=== PATIENT | male | born 1950 | race Caucasian/White ===

== ENCOUNTER 2016-04-16 17:21 | Emergency (ER) | payer MEDICAID ==
[2016-04-16] MEDS ORDERED: PROPARACAINE HCL OPTH 15ML BTL OPTH ONE (17:35)
--- NOTE | 2016-04-16 17:37 | Emergency Department Record ---
History of Present Illness - General Chief complaint: Eye Problem Stated complaint: SOMETHING IN LEFT EYE Time Seen by Provider: 04/16/16 17:35 Source: Patient Mode of Arrival: Ambulatory Limitations: No limitations Travel/Exposure to [place] Within 21 Days of Symptoms: No - History of Present Illness Initial comments: 65 yo male presents to ED with a CC of "possible" foreign body to the left eye. Patient reports that he was cutting metal with an electric saw this morning around 10:00, reports that he felt a piece of metal strike the left eye. Patient denies change in vision, but reports pain with blinking. Patient reports that his tetanus is not UTD. MD chief complaint: Eye pain, Foreign body Onset/Timin -: Hour(s) Location: Left eye If Injury: Occurred while hammering/grinding Eye Symptoms: Foreign body sensation, Pain Severity: Moderate If Pain, Quality: Sharp Consistency: Constant Context: Injury Associated Symptoms: None Treatments Prior to Arrival: None - Related Data Hx Tetanus Toxoid Vaccination: Yes Patient Tetanus UTD (within 5 yrs): Yes Home Medications Medication Instructions Recorded Confirmed Last Taken Aspirin 81 mg PO QD tab.chew 06/10/15 04/16/16 Atorvastatin Calcium 80 mg PO QD tab 06/10/15 04/16/16 Lisinopril 5 mg PO QD tab 06/10/15 04/16/16 Clopidogrel Bisulfate [Plavix] 75 mg PO QD tab 07/22/15 04/16/16 Metoprolol Succinate [Toprol Xl] 50 mg PO QD tab 01/01/16 04/16/16 Previous Rx's Medication Instructions Recorded Gentamicin Sulfate 1 drop LEFT EYE QID #5 ml 04/16/16 Allergies Allergy/AdvReac Type Severity Reaction Status Date / Time No Known Drug Allergies Allergy Verified 04/16/16 17:26 Travel Screening - Travel/Exposure Within Last 30 Days Have you traveled within the last 30 days?: No - Travel/Exposure Within Last Year Have you traveled outside the [place] in the last year?: No - Additonal Travel Details Have you been exposed to anyone with a communicable illness?: No Review of Systems Constitutional: Denies: Chills, Fever, Malaise, Night sweats Eyes: Reports: Eye pain, Photophobia. Denies: Eye discharge, Vision change ENT: Denies: Congestion, Ear pain, Epistaxis Respiratory: Denies: Cough, Dyspnea Cardiovascular: Denies: Chest pain, Dyspnea on exertion, Palpitations Endocrine: Denies: Fatigue, Heat or cold intolerance Gastrointestinal: Denies: Abdominal pain, Nausea, Vomiting Genitourinary: Denies: Incontinence, Retention Musculoskeletal: Denies: Arthralgia, Back pain, Gout, Joint swelling Skin: Denies: Bruising, Change in color, Rash Neurological: Denies: Abnormal gait, Confusion, Headache, Seizure Psychiatric: Denies: Anxiety Hematological/Lymphatic: Denies: Anemia, Blood Clots Past Medical History - SOCIAL HISTORY Smoking Status: Current every day smoker - RESPIRATORY Hx Respiratory Disorders: No - CARDIOVASCULAR Hx Cardio Disorders: Yes Hx Heart Attack: Yes - NEURO Hx Neuro Disorders: No - GI Hx GI Disorders: No - Hx Genitourinary Disorders: No - ENDOCRINE Hx Endocrine Disorders: No - MUSCULOSKELETAL Hx Musculoskeletal Disorders: No - PSYCH Hx Psych Problems: No - HEMATOLOGY/ONCOLOGY Hx Hematology/Oncology Disorders: No Family Medical History Any Significant Family History?: No Physical Exam - General General Appearance: Alert, Oriented x3, Cooperative, No acute distress Limitations: No limitations - Head Head exam: Atraumatic, Normocephalic, Normal inspection Head exam detail: negative: Abrasion, Contusion, Robbins's sign, General tenderness, Hematoma, Laceration - Eye Eye exam: Normal appearance, Other (Left eye was anesthetized with Alcaine drops , stained with florescein. Small linear abrasion to the cornea at the 3 o' clock position on examination, no FB identified, no rust ring present. Upper and lower lids were everted, no FB identified. ). negative: Conjunctival injection, Periorbital swelling, Periorbital tenderness, Scleral icterus - ENT Ear exam: negative: Auricular hematoma, Auricular trauma Nasal Exam: negative: Active bleeding, Discharge, Dried blood Mouth exam: negative: Drooling, Laceration, Muffled voice, Tongue elevation - Neck Neck exam: Normal inspection. negative: Meningismus, Tenderness - Respiratory Respiratory exam: Normal lung sounds bilaterally. negative: Rales, Respiratory distress, Rhonchi, Stridor - Cardiovascular Cardiovascular Exam: Regular rate, Normal rhythm, Normal heart sounds - GI/Abdominal GI/Abdominal exam: Soft. negative: Rebound, Rigid, Tenderness - Rectal Rectal exam: Deferred - exam: Deferred - Extremities Extremities exam: Normal inspection. negative: Calf tenderness, Pedal edema, Tenderness - Back Back exam: Reports: Normal inspection. Denies: CVA tenderness (R), CVA tenderness (L) - Neurological Neurological exam: Alert, Normal gait, Oriented X3 - Psychiatric Psychiatric exam: Normal affect, Normal mood - Skin Skin exam: Normal color. negative: Abrasion Type of lesion: negative: abrasion Course Vital Signs 04/16/16 17:24 Temperature 97.9 F Pulse Rate 65 Respiratory 15 Rate Blood Pressure 108/76 Pulse Ox 94 L - Reevaluation(s) Reevaluation #1: 04/16/16 17:43 On examination, no FB is identified near the cornea, and FB identified with lid eversion. Luisa's sign is negative. Symptoms are likely secondary to linear corneal abrasion at the 3 o'clock position. Will prescribe gentamicin for his abrasion with instructions to follow-up with Dr. Rosas on Tuesday. [facility] reviewed: 20/30 bilaterally with corrected lenses Disposition Disposition: Discharge Clinical Impression: Corneal abrasion Qualifiers: Encounter type: initial encounter Laterality: left Qualified Code(s): S05.02XA - Injury of conjunctiva and corneal abrasion without foreign body, left eye, initial encounter Disposition: Home, Self-Care Condition: (2) Stable Instructions: Corneal Abrasion (ED) Additional Instructions: Return to ED if your symptoms worsen or if you have any concerns. Gentamicin eye drops as directed. Follow-up with Dr. Rosas Tuesday as directed. Prescriptions: Gentamicin Sulfate 1 drop LEFT EYE QID #5 ml Referrals: ISRRAEL ROSAS [MEDICAL DOCTOR] - Forms: Patient Portal Access Time of Disposition: 17:37
[2016-04-16] MEDS ORDERED: Diph,Pert(Acell),Tet Vac 0.5 ML SYR IM ONE (17:42)
== END 2016-04-16 17:52 | disposition home or self-care (01) ==
LOC: ER 17:21
DX: S05.02XA Injury of conjunctiva and corneal abrasion without foreign body, left eye, initial encounter (principal); W31.1XXA Contact with metalworking machines, initial encounter
CPT/HCPCS: 90715; 96372; 99283

== ENCOUNTER 2016-06-10 02:08 | Emergency (ER) | payer MEDICAID ==
[2016-06-10 02:35] LABS: BASO % 0.2 % (0-6); EOS % 2.1 % (0-6); GRAN % 66.8 % (47-80); HEMATOCRIT 43.4 % (42.0-52.0); HEMOGLOBIN 14.1 gm/dl (14.0-18.0); MEAN CELL VOLUME 88.8 fl (81-97); MEAN CORPUSCULAR HEMOGLOBIN 28.8 pg (27-33); MEAN CORPUSCULAR HGB CONC 32.5 g/dl (32-36); MONO % 9.9 % (0-9); PLATELET COUNT 273 K/uL (130-400); RED BLOOD COUNT 4.89 M/uL (4.40-5.70); RED CELL DISTRIBUTION WIDTH 14.7 % (11.5-14.5); WHITE BLOOD COUNT W/O DIFF 9.7 K/uL (4.2-12.2)
--- NOTE | 2016-06-10 02:42 | Emergency Department Record ---
History of Present Illness - General Chief complaint: Extremity Problem Stated complaint: HAND PAIN Time Seen by Provider: 06/10/16 02:17 Source: Patient Mode of Arrival: Ambulatory Limitations: No limitations - History of Present Illness Initial comments: pt c/o severe r wrist pain with unknown cause. pt drove here and has no one to drive him home. MD Complaint: Extremity pain, Joint pain Onset/Timin -: Hour(s) Location: Right, Hand Severity scale (1-10): >10 Consistency: Constant, Getting worse Improves with: Nothing Worsens with: Nothing Associated Symptoms: Denies other symptoms - Related Data Home Medications Medication Instructions Recorded Confirmed Last Taken Aspirin 81 mg PO QD tab.chew 06/10/15 06/10/16 04/16/16 Atorvastatin Calcium 80 mg PO QD tab 06/10/15 06/10/16 04/16/16 Lisinopril 5 mg PO QD tab 06/10/15 06/10/16 04/16/16 Clopidogrel Bisulfate [Plavix] 75 mg PO QD tab 07/22/15 06/10/16 04/16/16 Metoprolol Succinate [Toprol Xl] 50 mg PO QD tab 01/01/16 06/10/16 04/16/16 Allergies Allergy/AdvReac Type Severity Reaction Status Date / Time No Known Drug Allergies Allergy Verified 04/16/16 17:26 Travel Screening - Travel/Exposure Within Last 30 Days Have you traveled within the last 30 days?: No - Travel/Exposure Within Last Year Have you traveled outside the [place] in the last year?: No - Additonal Travel Details Have you been exposed to anyone with a communicable illness?: No - Travel Symptoms Symptom Screening: None Review of Systems Reviewed: No additional complaints except as noted below Constitutional: Reports: As per HPI. Denies: Chills, Fever, Malaise, Night sweats, Weakness, Weight change Eyes: Reports: As per HPI. Denies: Eye discharge, Eye pain, Photophobia, Vision change ENT: Reports: As per HPI. Denies: Congestion, Dental pain, Ear pain, Epistaxis , Hearing loss, Throat pain Respiratory: Reports: As per HPI. Denies: Cough, Dyspnea, Hemoptysis, Stridor, Wheezes Cardiovascular: Reports: As per HPI. Denies: Arrhythmia, Chest pain, Dyspnea on exertion, Edema, Murmurs, Orthopnea, Palpitations, Paroxysmal nocturnal dyspnea, Rheumatic Fever, Syncope Endocrine: Reports: As per HPI. Denies: Fatigue, Heat or cold intolerance, Polydipsia, Polyuria Gastrointestinal: Reports: As per HPI. Denies: Abdominal pain, Constipation, Diarrhea, Hematemesis, Hematochezia, Melena, Nausea, Vomiting Genitourinary: Reports: As per HPI. Denies: Dysuria, Frequency, Hematuria, Incontinence, Retention, Testicular pain, Testicular mass, Urgency Musculoskeletal: Reports: As per HPI. Denies: Arthralgia, Back pain, Gout, Joint swelling, Myalgia, Neck pain Skin: Reports: As per HPI. Denies: Bruising, Change in color, Change in hair/ nails, Lesions, Pruritus, Rash Neurological: Reports: As per HPI. Denies: Abnormal gait, Confusion, Headache, Numbness, Paresthesias, Seizure, Tingling, Tremors, Vertigo, Weakness Psychiatric: Reports: As per HPI. Denies: Anxiety, Auditory hallucinations, Depression, Homicidal thoughts, Suicidal thoughts, Visual hallucinations Hematological/Lymphatic: Reports: As per HPI. Denies: Anemia, Blood Clots, Easy bleeding, Easy bruising, Swollen glands Past Medical History - SOCIAL HISTORY Smoking Status: Current every day smoker Alcohol Use: None Drug Use: None - RESPIRATORY Hx Respiratory Disorders: No - CARDIOVASCULAR Hx Cardio Disorders: Yes Hx Heart Attack: Yes (2016) - NEURO Hx Neuro Disorders: No - GI Hx GI Disorders: No - Hx Genitourinary Disorders: No - ENDOCRINE Hx Endocrine Disorders: No - MUSCULOSKELETAL Hx Musculoskeletal Disorders: No - PSYCH Hx Psych Problems: No - HEMATOLOGY/ONCOLOGY Hx Hematology/Oncology Disorders: No Family Medical History Any Significant Family History?: No Physical Exam - General General Appearance: Alert, Oriented x3, Cooperative, Mild distress - Head Head exam: Normal inspection - Eye Eye exam: Normal appearance, PERRL, EOMI Pupils: Normal accommodation - ENT ENT exam: Normal exam, Mucous membranes moist, Normal external ear exam, Normal orophraynx, TM's normal bilaterally Ear exam: Normal external inspection. negative: External canal tenderness Nasal Exam: Normal inspection. negative: Discharge, Sinus tenderness Mouth exam: Normal external inspection, Tongue normal Teeth exam: Normal inspection. negative: Dental caries Throat exam: Normal inspection. negative: Tonsillar erythema, Tonsillar exudate - Neck Neck exam: Normal inspection, Full ROM. negative: Tenderness - Respiratory Respiratory exam: Normal lung sounds bilaterally. negative: Respiratory distress - Cardiovascular Cardiovascular Exam: Regular rate, Normal rhythm, Normal heart sounds - GI/Abdominal GI/Abdominal exam: Soft, Normal bowel sounds. negative: Tenderness - Rectal Rectal exam: Deferred - exam: Deferred - Extremities Extremities exam: Normal capillary refill, Tenderness. negative: Normal inspection, Full ROM Image of Hand: 1 - tenderness w mild swelling 2 - tenderness , swelling - Back Back exam: Reports: Normal inspection, Full ROM. Denies: Muscle spasm, Rash noted, Tenderness - Neurological Neurological exam: Alert, CN II-XII intact, Normal gait, Oriented X3 - Psychiatric Psychiatric exam: Normal affect, Normal mood - Skin Skin exam: Dry, Intact, Normal color, Warm Course Vital Signs 06/10/16 02:12 Temperature 97.3 F L Pulse Rate 63 Respiratory 20 Rate Blood Pressure 141/93 Pulse Ox 95 - Reevaluation(s) Reevaluation #1: 06/10/16 02:47 pt repeatedly demanded instant pain meds. it was explained to pt by me, by maddy the nurse and by donna that if he could get a ride we could give him a shot but otherwise we would have to send him home with pain med as he is driving. despite repeatedly explaining this to him and telling him he would get pain med he continued to come out in the hallway and raise his voice at us. he stated that [facility] in [place] would give him instant pain medicine and give him a ride home. after 35 minites pt walked out prior to getting his xrays [prosthetic lab technician was here to get him} stating he would go to [facility] where he wouldnt have to wait and he would get his pain meds. he stated he would 'never come to this hole again' Medical Decision Making - Lab Data Result diagrams: 06/10/16 02:30 06/10/16 02:30 Lab Results 06/10/16 Range/Units 02:30 WBC 9.7 (4.2-12.2) K/uL RBC 4.89 (4.40-5.70) M/uL Hgb 14.1 (14.0-18.0) gm/dl Hct 43.4 (42.0-52.0) % MCV 88.8 (81-97) fl MCH 28.8 (27-33) pg MCHC 32.5 (32-36) g/dl RDW 14.7 H (11.5-14.5) % Plt Count 273 (130-400) K/uL MPV 9.0 (7.4-10.4) fl Gran % 66.8 (47-80) % Lymphocytes % 21.0 (16-45) % Monocytes % 9.9 H (0-9) % Eosinophils % 2.1 (0-6) % Basophils % 0.2 (0-6) % Disposition Disposition: Other Clinical Impression: Acute wrist pain Qualifiers: Laterality: right Qualified Code(s): M25.531 - Pain in right wrist Disposition: Against Medical Advice Condition: (1) Good Instructions: Wrist Injury (ED) Additional Instructions: may return at any time Forms: Patient Portal Access
[2016-06-10 02:46] LABS: ANION GAP 9.6 (7-16); BLOOD UREA NITROGEN 21 mg/dL (9-20); CARBON DIOXIDE 23.4 mmol/L (22-30); CREATININE 0.9 mg/dL (0.66-1.25); EST GLOMERULAR FILTRATION RATE > 60 ml/min; GLUCOSE,RANDOM 117 mg/dL (70-110)
== END 2016-06-10 02:55 | disposition left against medical advice (07) ==
LOC: ER 02:08
DX: M25.531 Pain in right wrist (principal)
CPT/HCPCS: 80048; 84550; 85025; 99283

== ENCOUNTER 2018-02-04 08:59 | Emergency (ER) | payer MEDICARE ==
[2018-02-04 09:14] LABS: URINE BILIRUBIN NEGATIVE (NEGATIVE); URINE BLOOD LARGE (NEGATIVE); URINE COLOR YELLOW; URINE GLUCOSE (UA) NEGATIVE (NEGATIVE); URINE KETONE NEGATIVE (NEGATIVE); URINE LEUKOCYTE ESTERASE SMALL (NEGATIVE); URINE NITRITE NEGATIVE (NEGATIVE); URINE PROTEIN TRACE (NEGATIVE); URINE UROBILINOGEN 0.2 E.U./dL (0.20 - 1.00)
[2018-02-04 09:17] LABS: URINE APPEARANCE SL CLOUDY
[2018-02-04 09:18] LABS: URINE BACTERIA FEW; URINE EPITHELIAL CELLS NONE SEEN (FEW); URINE RBC 21 - 35 (NONE SEEN)
--- NOTE | 2018-02-04 09:29 | Emergency Department Record ---
History of Present Illness - General Chief complaint: Male Urogenital Problem Stated complaint: UTI Time Seen by Provider: 02/04/18 09:23 Source: Patient Mode of Arrival: Ambulatory - History of Present Illness Initial comments: 2 days ago frequent urination and burnig on urination. PMH of kidney stones and he had a large one removed through his back 4 years ago at [place]. No kidney stone pain today and to pain percussing his back. After urination today in the ED we bladder scanned him and only had 45 ml in his bladder. MD Complaint: Dysuria Onset/Timin -: Days(s) Quality: Burning Consistency: Constant Improves with: None Worsens with: None Reports: Incontinence - Related Data Previous Rx's Medication Instructions Recorded Ciprofloxacin HCl [Cipro] 500 mg PO Q12HR #20 tablet 02/04/18 Allergies Allergy/AdvReac Type Severity Reaction Status Date / Time No Known Drug Allergies Allergy Unverified 11/02/17 09:02 Travel Screening - Travel/Exposure Within Last 30 Days Have you traveled within the last 30 days?: No - Travel/Exposure Within Last Year Have you traveled outside the [place] in the last year?: No - Additonal Travel Details Have you been exposed to anyone with a communicable illness?: No - Travel Symptoms Symptom Screening: None Review of Systems Reviewed: No additional complaints except as noted below Constitutional: Reports: As per HPI. Denies: Chills, Fever, Malaise, Night sweats, Weakness, Weight change Eyes: Reports: As per HPI. Denies: Eye discharge, Eye pain, Photophobia, Vision change ENT: Reports: As per HPI. Denies: Congestion, Dental pain, Ear pain, Epistaxis , Hearing loss, Throat pain Respiratory: Reports: As per HPI. Denies: Cough, Dyspnea, Hemoptysis, Stridor, Wheezes Cardiovascular: Reports: As per HPI. Denies: Arrhythmia, Chest pain, Dyspnea on exertion, Edema, Murmurs, Orthopnea, Palpitations, Paroxysmal nocturnal dyspnea, Rheumatic Fever, Syncope Endocrine: Reports: As per HPI. Denies: Fatigue, Heat or cold intolerance, Polydipsia, Polyuria Gastrointestinal: Reports: As per HPI. Denies: Abdominal pain, Constipation, Diarrhea, Hematemesis, Hematochezia, Melena, Nausea, Vomiting Genitourinary: Reports: As per HPI, Dysuria, Frequency, Urgency. Denies: Hematuria, Incontinence, Retention, Testicular pain, Testicular mass Musculoskeletal: Reports: As per HPI. Denies: Arthralgia, Back pain, Gout, Joint swelling, Myalgia, Neck pain Skin: Reports: As per HPI. Denies: Bruising, Change in color, Change in hair/ nails, Lesions, Pruritus, Rash Neurological: Reports: As per HPI. Denies: Abnormal gait, Confusion, Headache, Numbness, Paresthesias, Seizure, Tingling, Tremors, Vertigo, Weakness Psychiatric: Reports: As per HPI. Denies: Anxiety, Auditory hallucinations, Depression, Homicidal thoughts, Suicidal thoughts, Visual hallucinations Hematological/Lymphatic: Reports: As per HPI. Denies: Anemia, Blood Clots, Easy bleeding, Easy bruising, Swollen glands Past Medical History - SOCIAL HISTORY Smoking Status: Former smoker Alcohol Use: None Drug Use: Occasional Drug Use Detail:: Marijuana - RESPIRATORY Hx Respiratory Disorders: No - CARDIOVASCULAR Hx Cardio Disorders: Yes Hx Heart Attack: Yes (2016) - NEURO Hx Neuro Disorders: No - GI Hx GI Disorders: No - Hx Genitourinary Disorders: No - ENDOCRINE Hx Endocrine Disorders: No - MUSCULOSKELETAL Hx Musculoskeletal Disorders: No - PSYCH Hx Psych Problems: No - HEMATOLOGY/ONCOLOGY Hx Hematology/Oncology Disorders: No Family Medical History Any Significant Family History?: No Physical Exam - General General Appearance: Alert, Oriented x3, Cooperative, No acute distress - Head Head exam: Normal inspection - Eye Eye exam: Normal appearance, PERRL Pupils: Normal accommodation - ENT ENT exam: Normal exam, Mucous membranes moist, Normal external ear exam, Normal orophraynx, TM's normal bilaterally Ear exam: Normal external inspection. negative: External canal tenderness Nasal Exam: Normal inspection. negative: Discharge, Sinus tenderness Mouth exam: Normal external inspection, Tongue normal Teeth exam: Normal inspection. negative: Dental caries Throat exam: Normal inspection. negative: Tonsillar erythema, Tonsillar exudate - Neck Neck exam: Normal inspection, Full ROM. negative: Tenderness - Respiratory Respiratory exam: Normal lung sounds bilaterally. negative: Respiratory distress - Cardiovascular Cardiovascular Exam: Regular rate, Normal rhythm, Normal heart sounds - GI/Abdominal GI/Abdominal exam: Soft, Normal bowel sounds. negative: Tenderness - Rectal Rectal exam: Deferred - exam: Deferred - Extremities Extremities exam: Normal inspection, Full ROM, Normal capillary refill. negative: Tenderness - Back Back exam: Reports: Normal inspection, Full ROM. Denies: Muscle spasm, Rash noted, Tenderness - Neurological Neurological exam: Alert, Normal gait, Oriented X3, Reflexes normal - Psychiatric Psychiatric exam: Normal affect, Normal mood - Skin Skin exam: Dry, Intact, Normal color, Warm Course Vital Signs 02/04/18 09:04 Temperature 97.8 F Pulse Rate 83 Respiratory 18 Rate Blood Pressure 135/88 Pulse Ox 96 Medical Decision Making - Lab Data Lab Results 02/04/18 Range/Units 09:00 Urine Color Yellow Urine Appearance Sl cloudy Urine pH 6.0 (5.0-8.0) Ur Specific [place] 1.025 (1.002-1.030) Urine Protein Trace H (NEGATIVE) Urine Glucose (UA) Negative (NEGATIVE) Urine Ketones Negative (NEGATIVE) Urine Blood Large H (NEGATIVE) Urine Nitrite Negative (NEGATIVE) Urine Bilirubin Negative (NEGATIVE) Urine Urobilinogen 0.2 (0.20 - 1.00) E.U./dL Ur Leukocyte Esterase Small H (NEGATIVE) Urine RBC 21 - 35 (NONE SEEN) Urine WBC 10 - 15 (0-2/hpf) Ur Epithelial Cells None seen (FEW) Urine Bacteria Few Disposition Clinical Impression: UTI (urinary tract infection) Qualifiers: Urinary tract infection type: acute cystitis Hematuria presence: without hematuria Qualified Code(s): N30.00 - Acute cystitis without hematuria Disposition: Home, Self-Care Condition: (1) Good Instructions: Urinary Tract Infection in Men (ED) Additional Instructions: follow up with Dr govea and Mary Jo Beckett in 4 days to check on the urine culture Prescriptions: Ciprofloxacin HCl [Cipro] 500 mg PO Q12HR #20 tablet Forms: Patient Portal Access Time of Disposition: 09:39 Quality - Quality Measures Quality Measures: N/A - Blood Pressure Screening Does Patient Have Any of the Following: No Blood Pressure Classification: Pre-Hypertensive BP Reading Systolic Measurement: 135 Diastolic Measurement: 88 Screening for High Blood Pressure: < Pre-Hypertensive BP, F/U Documented > [ [id number]] Pre-Hypertensive Follow-up Interventions: Referral to alternative/primary care provider.
== END 2018-02-04 09:52 | disposition home or self-care (01) ==
LOC: ER 08:59
DX: N30.00 Acute cystitis without hematuria (principal); I25.2 Old myocardial infarction; Z87.442 Personal history of urinary calculi; Z87.891 Personal history of nicotine dependence
CPT/HCPCS: 81001; 99283

== ENCOUNTER 2018-12-28 07:28 | Emergency (ER) | payer MEDICARE ==
[2018-12-28] MEDS ORDERED: KETOROLAC 30 MG/ML VIAL IM ONE (07:41)
--- NOTE | 2018-12-28 08:12 | Emergency Department Record ---
History of Present Illness - General Chief Complaint: Fall Injury Stated Complaint: FALL RIGHT KNEE INJURY Time Seen by Provider: 12/28/18 07:37 Source: Patient Mode of Arrival: Ambulatory Limitations: No limitations - History of Present Illness Initial Comments: The patient is here due to a R knee injury which occurred 2 days ago. He fell on some steps and banged the knee hard. Since he has been unable to walk on the R knee and has been just laying in bed. There are no other injuries. MD Complaint: Fall Onset/Timin -: Days(s) When Fall Occurred: # Days RECONCILIATION ANALYST Fall Witnessed: Yes, by family Place Fall Occurred: Home Loss of Consciousness: None Prolonged Down Time?: No Symptoms Prior to Fall: None Severity: Severe Severity scale (1-10): >10 Quality: Aching Associated Symptoms: Denies - [place] Coma Scale Eye Response: (4) Open spontaneously Motor Response: (6) Obeys commands Verbal Response: (5) Oriented Tia Total: 15 - Related Data Previous Rx's Medication Instructions Recorded Hydrocodone/Acetaminophen [[place] 1 each PO QID #12 tablet 12/28/18 5-325 Tablet] Allergies Allergy/AdvReac Type Severity Reaction Status Date / Time No Known Drug Allergies Allergy Verified 12/28/18 07:34 Travel Screening - Travel/Exposure Within Last 30 Days Have you traveled within the last 30 days?: No Review of Systems Constitutional: Denies: Chills, Fever Eyes: Denies: Eye discharge ENT: Denies: Congestion Respiratory: Denies: Cough Past Medical History - SOCIAL HISTORY Smoking Status: Current every day smoker Alcohol Use: None Drug Use: Heavy Drug Use Detail:: Marijuana - RESPIRATORY Hx Respiratory Disorders: No - CARDIOVASCULAR Hx Cardio Disorders: Yes Hx Heart Attack: Yes (2016) Comment:: high cholesterol, Aortic aneurysm - NEURO Hx Neuro Disorders: No - GI Hx GI Disorders: No - Hx Genitourinary Disorders: No - ENDOCRINE Hx Endocrine Disorders: No - MUSCULOSKELETAL Hx Musculoskeletal Disorders: Yes Hx Gout: Yes - PSYCH Hx Psych Problems: No - HEMATOLOGY/ONCOLOGY Hx Hematology/Oncology Disorders: No Family Medical History Any Significant Family History?: No Physical Exam - General General Appearance: Alert, Cooperative, No acute distress - Head Head exam: Atraumatic - Eye Eye exam: Normal appearance - Extremities Extremities exam: Joint swelling, Tenderness (There is diffuse anterior R knee tenderness but there is no warmth or erythema.), Other (The RLE is NVI with normal pulses.). negative: Normal inspection (There is a large joint effusion.), Calf tenderness, Full ROM (The patient is unwilling to move the R knee and is holding it flexed 30 degrees.) - Neurological Neurological exam: Alert. negative: Motor sensory deficit Course Vital Signs 12/28/18 07:31 Temperature 98.2 F Pulse Rate 50 L Respiratory 22 Rate Blood Pressure 127/89 Pulse Ox 98 - Reevaluation(s) Reevaluation #1: I did discuss the xrays that did demonstrate a patellar fx. I then did discuss t he case with Dr. Underwood who will see the patient in the Specialty clinic next week. The patient is to ice and elevate the R knee when possible and use the immobilizer and crutches at all times. 12/28/18 08:46 Medical Decision Making - Data Complexity MDM Data: X-Ray Ordered and/or Reviewed - Radiology Data Radiology results: Report reviewed (R Knee: Nondisplaced fx patella.) Disposition Disposition: Discharge Clinical Impression: Patellar fracture Qualifiers: Encounter type: initial encounter Fracture type: closed Fracture morphology: unspecified fracture morphology Fracture alignment: nondisplaced Laterality: right Qualified Code(s): S82.001A - Unspecified fracture of right patella, initial encounter for closed fracture Disposition: Home, Self-Care Condition: (2) Stable Instructions: Patellar Fracture (ED) Additional Instructions: Please ice and elevate the R kneecap when possible and use the Immobilizer and crutches for walking. Please take Tylenol OR [place] for pain. Please see Dr. Underwood in the Specialty clinic next week. Return to the ER for any worsening issues. Please see your family doctor next week for recheck also. Prescriptions: Hydrocodone/Acetaminophen [[place] 5-325 Tablet] 1 each PO QID #12 tablet Referrals: [facility] [Provider Group] Forms: Patient Portal Access Time of Disposition: 08:50 Quality - Quality Measures Quality Measures: N/A - Blood Pressure Screening View Details: Yes Does Patient Have Any of the Following: No Blood Pressure Classification: Pre-Hypertensive BP Reading Systolic Measurement: 127 Diastolic Measurement: 89 Screening for High Blood Pressure: < Pre-Hypertensive BP, F/U Documented > [G8950] Pre-Hypertensive Follow-up Interventions: Referral to alternative/primary care provider.
--- NOTE | 2018-12-28 08:17 | RADIOLOGY REPORT ---
EXAMINATION: Right Knee Complete, Four or More Views EXAM DATE: 12/28/2018 8:06 AM TECHNIQUE: Frontal, lateral, oblique and sunrise view INDICATION: R knee pain S/P trauma COMPARISON: Left knee radiographs 07/01/2012 ENCOUNTER: Initial FINDINGS: Transverse fracture through the mid and lower thirds of the patella without distraction or displaceme nt. There is prepatellar soft tissue swelling. Small joint effusion. IMPRESSION: Undisplaced transverse patellar fracture. Dictated by: Gabriel Das MD on 12/28/2018 8:11 AM. .
[2018-12-28] MEDS ORDERED: HYDROCODONE/APAP 5/325MG TABLET PO ONE (08:37)
== END 2018-12-28 09:15 | disposition home or self-care (01) ==
LOC: ER 07:28
DX: S82.001A Unspecified fracture of right patella, initial encounter for closed fracture (principal); W10.9XXA Fall (on) (from) unspecified stairs and steps, initial encounter; Y92.009 Unspecified place in unspecified non-institutional (private) residence as the place of occurrence of the external cause; I25.2 Old myocardial infarction; F17.210 Nicotine dependence, cigarettes, uncomplicated
CPT/HCPCS: 99284 ×2; 73564; J1885; 99282

== ENCOUNTER 2019-02-28 17:58 | Emergency (ER) | payer MEDICARE ==
--- NOTE | 2019-02-28 18:13 | Emergency Department Record ---
History of Present Illness - General Chief complaint: Facial Swelling Stated complaint: RT CHEEK SWELLING Time Seen by Provider: 02/28/19 18:07 Source: Patient, RN notes reviewed - History of Present Illness Initial Comments: swelling right side of face and tendor in the right parotid gland Complaint: Facial swelling Onset/Timin -: Hour(s) Symptoms: Other (parotid gland swelling) Severity: Moderate Treatment Prior to Arrival: None Previous Allergy History: None - Related Data Previous Rx's Medication Instructions Recorded Cephalexin [Keflex] 500 mg PO QID #40 cap 02/28/19 Allergies Allergy/AdvReac Type Severity Reaction Status Date / Time No Known Drug Allergies Allergy Verified 02/28/19 18:09 Review of Systems Reviewed: No additional complaints except as noted below Constitutional: Reports: As per HPI. Denies: Chills, Fever, Malaise, Night sweats, Weakness, Weight change Eyes: Reports: As per HPI. Denies: Eye discharge, Eye pain, Photophobia, Vision change ENT: Reports: As per HPI, Other (swellin right face over parotid gland). Denies: Congestion, Dental pain, Ear pain, Epistaxis, Hearing loss, Throat pain Respiratory: Reports: As per HPI. Denies: Cough, Dyspnea, Hemoptysis, Stridor, Wheezes Cardiovascular: Reports: As per HPI. Denies: Arrhythmia, Chest pain, Dyspnea on exertion, Edema, Murmurs, Orthopnea, Palpitations, Paroxysmal nocturnal dy spnea, Rheumatic Fever, Syncope Endocrine: Reports: As per HPI. Denies: Fatigue, Heat or cold intolerance, Polydipsia, Polyuria Gastrointestinal: Reports: As per HPI. Denies: Abdominal pain, Constipation, Diarrhea, Hematemesis, Hematochezia, Melena, Nausea, Vomiting Genitourinary: Reports: As per HPI. Denies: Dysuria, Frequency, Hematuria, Incontinence, Retention, Testicular pain, Testicular mass, Urgency Musculoskeletal: Reports: As per HPI. Denies: Arthralgia, Back pain, Gout, Joint swelling, Myalgia, Neck pain Skin: Reports: As per HPI. Denies: Bruising, Change in color, Change in hair/nails, Lesions, Pruritus, Rash Neurological: Reports: As per HPI. Denies: Abnormal gait, Confusion, Headache, Numbness, Paresthesias, Seizure, Tingling, Tremors, Vertigo, Weakness Psychiatric: Reports: As per HPI. Denies: Anxiety, Auditory hallucinations, Depression, Homicidal thoughts, Suicidal thoughts, Visual hallucinations Hematological/Lymphatic: Reports: As per HPI. Denies: Anemia, Blood Clots, Easy bleeding, Easy bruising, Swollen glands Past Medical History - SOCIAL HISTORY Smoking Status: Current every day smoker Drug Use: Heavy Drug Use Detail:: Marijuana - RESPIRATORY Hx Respiratory Disorders: No - CARDIOVASCULAR Hx Cardio Disorders: Yes Hx Heart Attack: Yes (2016) Comment:: high cholesterol, Aortic aneurysm - NEURO Hx Neuro Disorders: No - GI Hx GI Disorders: No - Hx Genitourinary Disorders: No - ENDOCRINE Hx Endocrine Disorders: No - MUSCULOSKELETAL Hx Musculoskeletal Disorders: Yes Hx Gout: Yes - PSYCH Hx Psych Problems: No - HEMATOLOGY/ONCOLOGY Hx Hematology/Oncology Disorders: No Physical Exam - General General Appearance: Alert, Oriented x3, Cooperative, No acute distress - Head Head exam: Normal inspection - Eye Eye exam: Normal appearance, PERRL Pupils: Normal accommodation - ENT ENT exam: Normal exam, Mucous membranes moist, Normal external ear exam, Normal orophraynx, TM's normal bilaterally, Other (unable to express saliva from right stensons duct) Ear exam: Normal external inspection. negative: External canal tenderness Nasal Exam: Normal inspection. negative: Discharge, Sinus tenderness Mouth exam: Normal external inspection, Tongue normal Teeth exam: Normal inspection. negative: Dental caries Throat exam: Normal inspection. negative: Tonsillar erythema, Tonsillar exudate - Neck Neck exam: Normal inspection, Full ROM. negative: Tenderness - Respiratory Respiratory exam: Normal lung sounds bilaterally. negative: Respiratory distress - Cardiovascular Cardiovascular Exam: Regular rate, Normal rhythm, Normal heart sounds - GI/Abdominal GI/Abdominal exam: Soft, Normal bowel sounds. negative: Tenderness - Rectal Rectal exam: Deferred - exam: Deferred - Extremities Extremities exam: Normal inspection, Full ROM, Normal capillary refill. negative: Tenderness - Back Back exam: Reports: Normal inspection, Full ROM. Denies: Muscle spasm, Rash noted, Tenderness - Neurological Neurological exam: Alert, Normal gait, Oriented X3, Reflexes normal - Psychiatric Psychiatric exam: Normal affect, Normal mood - Skin Skin exam: Dry, Intact, Normal color, Warm Disposition Clinical Impression: Parotiditis Disposition: Home, Self-Care Condition: (1) Good Instructions: Parotid Duct Obstruction (ED), Sialoadenitis (ED) Additional Instructions: follow up with family Dr in one week and if it doesn't improve may need to see ENT to robe jillian's duct. suck on lemon drop lozenges keflex 500 mg four times a day Prescriptions: Cephalexin [Keflex] 500 mg PO QID #40 cap Forms: Patient Portal Access Time of Disposition: 18:15 Quality - Quality Measures Quality Measures: N/A - Blood Pressure Screening Does Patient Have Any of the Following: No, Active Dx of HTN Blood Pressure Classification: Hypertensive Reading Systolic Measurement: 153 Diastolic Measurement: 96 Screening for High Blood Pressure: Patient Exclusion, Hx of HTN [G9744]
[2019-02-28] MEDS ORDERED: CEPHALEXIN 500 MG CAPSULE PO STA (18:14)
== END 2019-02-28 18:25 | disposition home or self-care (01) ==
LOC: ER 17:58
DX: K11.21 Acute sialoadenitis (principal); F17.210 Nicotine dependence, cigarettes, uncomplicated; I25.2 Old myocardial infarction
CPT/HCPCS: 99283